=== PATIENT | female | born 1990 | race Caucasian/White ===

== ENCOUNTER 2019-07-18 08:25 | Emergency (ER) | payer SELFPAY ==
[~2019-07-18] VITALS: Ht 170.2 cm; Wt 68.0 kg
--- NOTE | 2019-07-18 08:53 | PHYS DOC ---
Adult General Chief Complaint Chief Complaint: PAINFUL RASH IN PRIVATE AREA HPI HPI Patient is a 29 year old female presented to ER today for evaluation of painful lesions around her perigenital area, vagina area for 10 days. Patient said she went to [facility] last week, diagnosed with ingrown hair, put on some cream that did not get any better. Patient says they checked her status and it was negative. Patient is sexually active. She also complaint of some vaginal discharge. Patient denies any pelvic pain, no abdominal pain, no nausea, or vomiting. Patient denies any fever. Patient is not on control medications, she is not on her period at this time. Patient says she is not . All other ROS is negative unless otherwise noted in HPI Review of Systems Review of Systems See above Current Medications Current Medications Current Medications Medications (Trade) Dose Ordered Sig/Charly Start Time Stop Time Status Last Admin Dose Admin Azithromycin (Zithromax) 1,000 mg 1X ONCE 07/18/19 09:00 07/18/19 09:10 DC 07/18/19 09:19 1,000 MG Ceftriaxone Sodium (Rocephin Im) 250 mg 1X ONCE 07/18/19 09:00 07/18/19 09:10 DC 07/18/19 09:20 250 MG Ketorolac Tromethamine (Toradol Im) 60 mg 1X ONCE 07/18/19 09:00 07/18/19 09:10 DC 07/18/19 09:16 60 MG Lidocaine HCl (Buffered Lidocaine 1%) 3 ml STK-MED ONCE 07/18/19 09:12 07/18/19 09:13 DC Allergies Allergies Allergies Coded Allergies Type Severity Reaction Last Updated Verified No Known Drug Allergies 07/18/19 No Physical Exam Physical Exam See above Constitutional: Well developed, well nourished, no acute distress, non-toxic appearance. [] HENT: Normocephalic, atraumatic, bilateral external ears normal, oropharynx moist, no oral exudates, nose normal. [] Eyes: PERRLA, EOMI, conjunctiva normal, no discharge. [] Neck: Normal range of motion, no tenderness, supple, no stridor. [] Cardiovascular:Heart rate regular rhythm, no murmur [] Lungs & Thorax: Bilateral breath sounds clear to auscultation [] Abdomen: Bowel sounds normal, soft, no tenderness, no masses, no pulsatile masses. Pelvic Exam: herpetic lesions around perigenital and vaginal area. Around buttock area, there is erythematous and tender to palpation. THere is foul cloudy vaginal discharge. There was a tampon stuck inside vaginal canal. It was removed by ring forcep. Skin: Warm, dry. Back: No tenderness, no CVA tenderness. [] Extremities: No tenderness, no cyanosis, no clubbing, ROM intact, no edema. [] Neurologic: Alert and oriented X 3, normal motor function, normal sensory function, no focal deficits noted. [] Psychologic: Affect normal, judgement normal, mood normal. [] Current Patient Data Vital Signs Vital Signs Date Time Temp Pulse Resp B/P (MAP) Pulse Ox O2 Delivery O2 Flow Rate FiO2 07/18/19 08:35 98.3 101 18 121/66 (84) 99 Room Air 98.3 EKG EKG [] Radiology/Procedures Radiology/Procedures [] Course & Med Decision Making Course & Med Decision Making Pertinent Labs and Imaging studies reviewed. (See chart for details) [] Dragon Disclaimer Dragon Disclaimer This electronic medical record was generated, in whole or in part, using a voice recognition dictation system. Departure Departure Impression: Primary Impression: Genital herpes Additional Impression: Cellulitis of buttock Disposition: 01 HOME, SELF-CARE Condition: STABLE Referrals: NO PCP (PCP) FOLLOW UP WITH YOUR DOCTOR NEXT WEEK. Patient Instructions: Cellulitis, Genital Herpes Scripts Sulfamethoxazole/Trimethoprim (BACTRIM DS TABLET) 1 Each Tablet 1 TAB PO BID for 10 Days, #20 TAB 0 Refills Prov: NICOLÁS URIOSTEGUI DO 07/18/19 Ibuprofen (IBUPROFEN) 600 Mg Tablet 600 MG PO PRN Q8HRS PRN for INFLAMMATION, #30 TAB Prov: NICOLÁS URIOSTEGUI DO 07/18/19 Hydrocodone/Apap 5-325 (NORCO 5-325 TABLET) 1 Each Tablet 1 TAB PO PRN Q6HRS PRN for PAIN for 3 Days, #12 TAB 0 Refills Prov: NICOLÁS URIOSTEGUI DO 07/18/19 Acyclovir (ACYCLOVIR) 400 Mg Tablet 1 TAB PO TID for 14 Days, #42 TAB Prov: NICOLÁS URIOSTEGUI DO 07/18/19 Problem Qualifiers NICOLÁS URIOSTEGUI DO Jul 18, 2019 08:53
[2019-07-18] MEDS ORDERED: KETOROLAC 60 MG/2 ML VIAL. IM ONE (09:00)
[2019-07-18] MEDS ORDERED: AZITHROMYCIN 250 MG TABLET. PO ONE (09:00)
[2019-07-18] MEDS ORDERED: cefTRIAXone IM 250 MG VIAL IM ONE (09:00)
[2019-07-18] MEDS ORDERED: LIDOCAINE WITH 8.4% SOD BICARB 3 ML DISP.SYRIN. ONE (09:12)
[2019-07-18] MEDS ORDERED: HYDR-3164 PO (09:55)
[2019-07-18] MEDS ORDERED: IBUP-1007 PO (09:55)
[2019-07-18] MEDS ORDERED: ACYC400T PO (09:55)
[2019-07-18] MEDS ORDERED: SULF1TAB24 PO (09:57)
[2019-07-18 10:05] VITALS: BP 104/57
[2019-07-20 05:10] LABS: GC PROBE Negative (Negative)
[2019-07-21 07:14] LABS: HERPES SIMPLEX TYPE 1 Positive (Negative); HERPES SIMPLEX TYPE 2 Negative (Negative)
== END 2019-07-18 10:13 | disposition home or self-care (01) ==
LOC: ER 08:25
DX: A60.04 Herpesviral vulvovaginitis (principal); L03.317 Cellulitis of buttock
CPT/HCPCS: 87491; 87529; 87591; 96372; 99284; J0696; J1885; Q0111; Q0144